=== PATIENT | female | born 1960 | race Caucasian/White ===

== ENCOUNTER 2016-08-14 16:10 | Emergency (ER) | payer OTHER ==
[~2016-08-14] VITALS: Ht 152.4 cm; Wt 72.6 kg
[~2016-08-14 16:10] MED LIST: ACETAMINOPHEN325 M1 PO; ACETAMINOPHEN650 M5 PO; AUGMENTIN 875875 MG PO; BENZTROPINE MES1 MG PO; BENZTROPINE PO; CAL PO; CARBAMAZEPINE200 M2 PO; CLONAZEPAM 0.50.5 M1 PO; CLONAZEPAM 1 MG1 M1 PO; COLACE100 MG PO; ENOXAPARIN40 MG/0.1 INJECTION; FOSAMAX 70 MG T70 MG PO; HYDROCODON-ACE1 EAC7 PO; IRON325 PO; KEPPRA 500 MG500 M1 PO; LACTULOSE10 GM/15 M PO; LASIX 20 MG TAB20 MG PO; LATUDA40 MG PO; LAXATIVE PEG 3317 GM PO; LEVOTHYROXINE0.05 MG PO; LOFIBRA200 MG PO; MILK OF MA2400 MG/10 PO; MOM PO; MULTIVITAMINS PO; RISPERDAL M-TAB2 MG PO; RISPERDAL2 MG PO; SANTYL; SANTYL OINTMENT30 G1 TOP; SENNA PO; SEROQUEL 25 MG25 MG PO; SIMVASTATIN40 MG PO; THERA-M CAPLET1 EACH PO; TRIPLE ANTIBIO1 EACH TP; TYLENOL325 MG PO; VIMPAT200 MG PO; VITAMIN B-121000 MC1 PO; VITAMIN D PO; VITAMIN D2000 UNI1 PO; VITAMINC500 PO; ZOFRAN ODT4 MG PO
== END 2016-08-14 18:54 | disposition home or self-care (01) ==
LOC: ER 16:10
DX: S00.03XA Contusion of scalp, initial encounter (principal); F20.9 Schizophrenia, unspecified; F03.90 Unspecified dementia, unspecified severity, without behavioral disturbance, psychotic disturbance, mood disturbance, and anxiety; Z88.8 Allergy status to other drugs, medicaments and biological substances; W18.09XA Striking against other object with subsequent fall, initial encounter; Y93.89 Activity, other specified; Y92.89 Other specified places as the place of occurrence of the external cause; Y99.8 Other external cause status

== ENCOUNTER 2019-09-21 09:11 | Emergency (ER) | payer OTHER ==
[~2019-09-21] VITALS: Ht 157.5 cm; Wt 68.0 kg
--- NOTE | ~2019-09-21 | EMS ---
[address] [address] EMS Patient Care Report Name: LIANET SHANNON Room #: DEP JENI Contreras#: [id number] Admission: 09/21/19 Attend Phys: Discharge: 09/21/19 Date of : 64 Report #: [id number] THIS REPORT FOR: //name// Report Transmitted: 09/25/2019 08:26 EMS Care Summary [place], [place]/[facility] Incident [id number] @ 09/21/2019 08:33 Incident Location [id number] [place] [address] Patient LIANET SHANNON Female, 59 Years 1960 Patient Address [id number] [place], [place] [id number] Patient History Seizures,Cerebral Palsy, Patient Allergies [place] allergy, Chief Complaint generalized weakness Disposition Transported No Lights/[place] Dispatch Reason Stroke/CVA Transported To [facility] Narrative nh staff on scene stated pt was last normal around 0730. nh staff stated pt was too weak to stand up from wheelchair and has been slightly altered. nh staff stated pt is normally more alert. staff contacted other provider on phone to give more info as present worker on scene did not know much personal hx with pt. pt found sitting upright in wheelchair and alert. pt alert to herself gcs 14 which correlates with baseline per nh staff. pt voiced no complaints. [address] [address] EMS Patient Care Report Name: LIANET SHANNON Room #: DEP [facility]#: [id number] Admission: 09/21/19 Attend Phys: Discharge: 09/21/19 Date of : 64 Report #: [id number] negative. surgical mask placed on pt. pt was moved from house via wheelchair. pt was transferred onto ems cot and was secured in a semi fowlers position without incident. pt was loaded into ambulance. pt was transported non emergent. transport was uneventful and pt rested on ems cot. pt care was transferred to appropriate staff and ems goes back in service. Initial Vitals @09:05P: 96,R: 20,BP: 154/82,GCS: 14,SpO2: 98,Revised Trauma: 12, @08:48P: 92,R: 20,BP: 158/82,Pain: 0/10,GCS: 14,Glucose: 190,SpO2: 98,Revised Trauma: 12, Assessments @08:40MENTAL:No Abnormalities,SKIN:No Abnormalities,HEENT:Head/Face: No Abnormalities,Eyes: No Abnormalities,Neck/Airway: No Abnormalities,LUNG SOUNDS:General: No Abnormalities,Left Upper: No Abnormalities,Right Upper: No Abnormalities,Left Lower: No Abnormalities,Right Lower: No Abnormalities,ABDOMEN:General: No Abnormalities,Left Upper: No Abnormalities,Right Upper: No Abnormalities,Left Lower: No Abnormalities,Right Lower: No Abnormalities,PELVIS//GI:No Abnormalities,EXTREMITIES:Left Arm: No Abnormalities,Right Arm: No Abnormalities,Left Leg: No Abnormalities,Right Leg: No Abnormalities,PULSE:NEURO:No Abnormalities,@08:56MENTAL:No Abnormalities,SKIN:No Abnormalities,HEENT:Head/Face: No Abnormalities,Eyes: No Abnormalities,Neck/Airway: No Abnormalities,LUNG SOUNDS:General: No Abnormalities,Left Upper: No Abnormalities,Right Upper: No Abnormalities,Left Lower: No Abnormalities,Right Lower: No Abnormalities,ABDOMEN:General: No Abnormalities,Left Upper: No Abnormalities,Right Upper: No Abnormalities,Left Lower: No Abnormalities,Right Lower: No Abnormalities,PELVIS//GI:No Abnormalities,EXTREMITIES:Left Arm: No Abnormalities,Right Arm: No Abnormalities,Left Leg: No Abnormalities,Right Leg: No Abnormalities,PULSE:NEURO:No Abnormalities, Impression Generalized Weakness Procedures @08:40ALS AssessmentResponse: UnchangedSucceeded Timeline 08:31,Call Received 08:31,Dispatch Notified 08:33,Dispatched 08:34,En Route 08:39,On Scene 08:40,At Patient 08:40,ALS Assessment,Response: UnchangedSucceeded, 08:48,BP: 158/82 M,PULSE: 92,RR: 20 R,SPO2: 98 Ox,ETCO2: ,B,PAIN: 0,GCS: [address] [address] EMS Patient Care Report Name: LIANET SHANNON Room #: DEP Diane#: [id number] Admission: 09/21/19 Attend Phys: Discharge: 09/21/19 Date of : 64 Report #: [id number] 14, 08:51,Depart Scene 09:05,BP: 154/82 M,PULSE: 96,RR: 20 R,SPO2: 98 Ox,ETCO2: ,BG: ,PAIN: ,GCS: 14, 09:06,At Destination 09:17,Call Closed Disclaimer v1.1 Copyright 2020 [employer] This EMS Care Summary contains data elements from the applicable legal record (which may be displayed differently). It is designed to provide pertinent information for the following purposes: continuity of care, clinical quality, and state data reporting. The complete legal record is available to ED staff and administrators of the receiving hospital in [employer]'s Patient Tracker. All data is provided "as is."
--- NOTE | ~2019-09-21 | EMS ---
[facility] [address] [place] [address] EMS Patient Care Report Name: LIANET SHANNON Room #: PRE M.R.#: [id number] Admission: Attend Phys: Discharge: Date of : 64 Report #: [id number] THIS REPORT FOR: //name// Report Transmitted: 09/21/2019 08:55 EMS Care Summary [place], [place]/[facility] Incident [id number] @ 09/21/2019 08:33 Incident Location [id number] [place] [address] Patient LIANET SHANNON Female, 59 Years 1960 Patient Address [address] [place] [address] Patient History Seizures,Cerebral Palsy, Patient Allergies [place] allergy, Chief Complaint generalized weakness Disposition Transported No Lights/[place] Dispatch Reason Stroke/CVA Transported To [facility] Narrative nh staff on scene stated pt was last normal around 07. nh staff stated pt was too weak to stand up from wheelchair and has been slightly altered. nh staff stated pt is normally more alert. staff contacted other provider on phone to give more info as present worker on scene did not know much personal hx with pt. pt found sitting upright in wheelchair and alert. pt alert to herself gcs 14 which correlates with baseline per nh staff. pt voiced no complaints. [facility] [address] [place] [address] EMS Patient Care Report Name: LIANET SHANNON Room #: PRE [facility].R.#: [id number] Admission: Attend Phys: Discharge: Date of : 64 Report #: [id number] negative. surgical mask placed on pt. pt was moved from house via wheelchair. pt was transferred onto ems cot and was secured in a semi fowlers position without incident. pt was loaded into ambulance. pt was transported non emergent. transport was uneventful and pt rested on ems cot. pt care was transferred to appropriate staff and ems goes back in service. Initial Vitals @09:05P: 96,R: 20,BP: 154/82,GCS: 14,SpO2: 98,Revised Trauma: 12, @08:48P: 92,R: 20,BP: 158/82,Pain: 0/10,GCS: 14,Glucose: 190,SpO2: 98,Revised Trauma: 12, Assessments @08:40MENTAL:No Abnormalities,SKIN:No Abnormalities,HEENT:Head/Face: No Abnormalities,Eyes: No Abnormalities,Neck/Airway: No Abnormalities,LUNG SOUNDS:General: No Abnormalities,Left Upper: No Abnormalities,Right Upper: No Abnormalities,Left Lower: No Abnormalities,Right Lower: No Abnormalities,ABDOMEN:General: No Abnormalities,Left Upper: No Abnormalities,Right Upper: No Abnormalities,Left Lower: No Abnormalities,Right Lower: No Abnormalities,PELVIS//GI:No Abnormalities,EXTREMITIES:Left Arm: No Abnormalities,Right Arm: No Abnormalities,Left Leg: No Abnormalities,Right Leg: No Abnormalities,PULSE:NEURO:No Abnormalities,@08:56MENTAL:No Abnormalities,SKIN:No Abnormalities,HEENT:Head/Face: No Abnormalities,Eyes: No Abnormalities,Neck/Airway: No Abnormalities,LUNG SOUNDS:General: No Abnormalities,Left Upper: No Abnormalities,Right Upper: No Abnormalities,Left Lower: No Abnormalities,Right Lower: No Abnormalities,ABDOMEN:General: No Abnormalities,Left Upper: No Abnormalities,Right Upper: No Abnormalities,Left Lower: No Abnormalities,Right Lower: No Abnormalities,PELVIS//GI:No Abnormalities,EXTREMITIES:Left Arm: No Abnormalities,Right Arm: No Abnormalities,Left Leg: No Abnormalities,Right Leg: No Abnormalities,PULSE:NEURO:No Abnormalities, Impression Generalized Weakness Procedures @08:40ALS AssessmentResponse: UnchangedSucceeded Timeline 08:31,Call Received 08:31,Dispatch Notified 08:33,Dispatched 08:34,En Route 08:39,On Scene 08:40,At Patient 08:40,ALS Assessment,Response: UnchangedSucceeded, 08:48,BP: 158/82 M,PULSE: 92,RR: 20 R,SPO2: 98 Ox,ETCO2: ,B,PAIN: 0,GCS: [address] [address] EMS Patient Care Report Name: LIANET SHANNON Room #: PRE ER M.R.#: [id number] Admission: Attend Phys: Discharge: Date of : 64 Report #: [id number] 14, 08:51,Depart Scene 09:05,BP: 154/82 M,PULSE: 96,RR: 20 R,SPO2: 98 Ox,ETCO2: ,BG: ,PAIN: ,GCS: 14, 09:06,At Destination 09:17,Call Closed Disclaimer v1.1 Copyright 2020 [employer] This EMS Care Summary contains data elements from the applicable legal record (which may be displayed differently). It is designed to provide pertinent information for the following purposes: continuity of care, clinical quality, and state data reporting. The complete legal record is available to ED staff and administrators of the receiving hospital in [employer]'s Patient Tracker. All data is provided "as is."
[2019-09-21 09:47] LABS: HEMATOCRIT 40.7 % (37.0-47.0); HEMOGLOBIN 13.7 gm/dL (12.0-15.0); MCH 30.1 pg (26.0-34.0); MCHC 33.7 g/dL (28.0-37.0); MCV 89.2 fL (80.0-100.0); RBC 4.56 mil/uL (4.20-5.00); RDW 13.6 % (10.5-14.5); WBC 4.8 thou/uL (4.0-11.0)
[2019-09-21 09:53] LABS: URINE BILIRUBIN NEGATIVE (Negative); URINE BLOOD NEGATIVE (Negative); URINE COLOR YELLOW; URINE GLUCOSE-RANDOM* NEGATIVE (Negative); URINE KETONES NEGATIVE (Negative); URINE NITRITE-REFLEX NEGATIVE (Negative); URINE PROTEIN (DIPSTICK) NEGATIVE (Negative); URINE SPECIFIC GRAVITY 1.015 (1.005-1.035); URINE UROBILINOGEN 0.2 E.U./dl (0.2-1.0)
[2019-09-21 09:55] LABS: URINE CLARITY CLOUDY; URINE LEUKOCYTES-REFLEX 3+ (Negative)
[2019-09-21] MEDS ORDERED: CARBAMAZEPINE100 M2 PO (09:55)
[2019-09-21 09:57] LABS: ANION GAP 8 mmol/L (7-16); BUN 13 mg/dL (7-18); CALCIUM 9.3 mg/dL (8.5-10.1); CHLORIDE 101 mmol/L (98-107); CO2 29 mmol/L (21-32); CREATININE 0.9 mg/dL (0.6-1.0); GLUCOSE 107 mg/dL (74-106); POTASSIUM 3.9 mmol/L (3.5-5.1); SODIUM 138 mmol/L (136-145)
[2019-09-21] MEDS ORDERED: KEPPRA XR500 MG PO (09:58)
[2019-09-21] MEDS ORDERED: LOXAPINE50 MG PO (09:59)
[2019-09-21] MEDS ORDERED: PRAZOSIN 1 MG CA1 M1 PO (09:59)
[2019-09-21 10:02] LABS: ALBUMIN 3.7 g/dL (3.4-5.0); DIRECT BILIRUBIN < 0.1 mg/dL (<0.1-0.2); LIPASE 102 U/L (73-393); SGOT 24 U/L (15-37); SGPT 31 U/L (30-65); TOTAL BILIRUBIN 0.2 mg/dL (<0.1-1.0); TOTAL PROTEIN 7.1 g/dL (6.4-8.2)
[2019-09-21 10:04] LABS: BACTERIA-REFLEX >30 Many /HPF (None Seen); CASTS None Seen /LPF (None Seen); CRYSTALS None Seen /LPF (None Seen); SQUAMOUS None Seen /LPF (0-3); URINE RBC None Seen /HPF (0-2); URINE WBC-REFLEX 6-15 Few /HPF (0-5)
[2019-09-21] MEDS ORDERED: KEFLEX500 M1 PO (10:42)
[2019-09-21 10:45] VITALS: BP 136/71
== END 2019-09-21 10:45 | disposition home or self-care (01) ==
LOC: ER 09:11
PROVIDERS: Emergency Medicine
DX: N39.0 Urinary tract infection, site not specified (principal); K59.00 Constipation, unspecified; R41.82 Altered mental status, unspecified; R53.1 Weakness; Z79.899 Other long term (current) drug therapy; Z88.8 Allergy status to other drugs, medicaments and biological substances

== ENCOUNTER 2021-07-10 10:07 | Inpatient (IN) | payer OTHER ==
[~2021-07-10] VITALS: Ht 160 cm; Wt 78.8 kg
--- NOTE | ~2021-07-10 | EMS ---
[address] [address] EMS Patient Care Report Name: LIANET SHANNON Room #: REG JENI Contreras#: [id number] Admission: 07/10/21 Attend Phys: Discharge: Date of : 64 Report #: [id number] THIS REPORT FOR: //name// Report Transmitted: 07/10/2021 10:17 EMS Care Summary [place], [place]/[facility] Incident [id number] @ 07/10/2021 09:17 Incident Location [address] [place] [address] Patient LIANET SHANNON Female, 61 Years 1960 Patient Address [address] [place] [address] Patient History Seizures,Hyperlipidemia,Anxiety Disorder (Panic Attacks),Bipolar II Disorder,Paranoid Schizophrenia, Patient Allergies No known allergies, Patient Medications Carbamazepine, Claritin, Keppra, Alendronate, Lasix, Mobic, Synthroid, Flomax, Chief Complaint Possible Stroke Disposition Transported No Lights/[place] Dispatch Reason Stroke/CVA Transported To [facility] Narrative [facility] stated that Pt has been more sleepy along with slurred speech, left side weakness and unable to get up on her own and facial drooping too which started around 16 00 hours yesterday. Pt stated she is unable to [address] [address] EMS Patient Care Report Name: LIANET SHANNON Room #: REG [facility].#: [id number] Admission: 07/10/21 Attend Phys: Discharge: Date of : 64 Report #: [id number] feed herself without spilling everything on herself and can not get up without the fear of falling and is having issues of speaking too. Pt stated she never had this issue before and stated she is scared . Pt is a GCS 14 which staff stated is normal for Pt and Pt is with no other complaints. Pt found sitting in wheelchair at [facility], Pt is with left side facial drooping, left side arm and leg weakness and left arm drift with slurred speech when she speaks. . Pt is a new onset of CVA that was last know well @ 1600 hours yesterday.. Staff said Pt is pretty much takes care of herself and has no history of strokes in the past. Pt is a GCS 14 which staff stated is normal for Pt and Pt is with no other complaints noted to EMS. Pt transported to [facility] ER due to the closest hospital rule in affect due to weather. Pt received by RN in ER. Initial Vitals @09:38P: 90,R: 18,BP: 122/77,Pain: 0/10,GCS: 14,Glucose: 97,SpO2: 96,Revised Trauma: 12, @09:58P: 82,R: 18,BP: 111/59,Pain: 0/10,GCS: 15,SpO2: 100,Revised Trauma: 12, @09:47P: 84,R: 18,BP: 128/57,Pain: 0/10,GCS: 15,SpO2: 99,Revised Trauma: 12, Assessments @09:31MENTAL:Place Oriented,Person Oriented,Event Oriented,Confused,SKIN:HEENT:Head/Face: No Abnormalities,Neck/Airway: No Abnormalities,LUNG SOUNDS:General: No Abnormalities,ABDOMEN:General: No Abnormalities,PELVIS//GI:No Abnormalities,EXTREMITIES:Left Leg: Other,Left Arm: Weakness,Left Arm: Other,Left Leg: Weakness,Capillary Refill: Left Upper: < 2 Sec,Right Arm: No Abnormalities,Right Leg: No Abnormalities,PULSE:Radial: 2+ Normal,NEURO:Slurred Speech,Weakness Left-Sided,Abnormal Gait,Facial Droop,@10:00MENTAL:Place Oriented,Event Oriented,Confused,Person Oriented,SKIN:HEENT:Head/Face: Facial Droop,Neck/Airway: No Abnormalities,LUNG SOUNDS:General: No Abnormalities,ABDOMEN:General: No Abnormalities,PELVIS//GI:No Abnormalities,EXTREMITIES:Left Arm: Weakness,Right Leg: Weakness,Right Leg: Other,Capillary Refill: Left Upper: < 2 Sec,Left Leg: Weakness,Left Arm: Other,Left Leg: Other,Right Arm: No Abnormalities,PULSE:Radial: 2+ Normal,NEURO:Abnormal Gait,Facial Droop,Weakness Left-Sided,Slurred Speech, Impression Stroke Procedures @09:31 ALS Assessment Response: UnchangedSucceeded @09:34 Oxygen FlowRate: 4 Device: Nasal Cannula (NC) Response: UnchangedSucceeded @09:40 IV Therapy - Saline Lock 0cc (20 ga) Site: Forearm-Right Response: UnchangedSucceeded [address] [address] EMS Patient Care Report Name: LIANET SHANNON Room #: REG JENI Contreras#: [id number] Admission: 07/10/21 Attend Phys: Discharge: Date of : 64 Report #: [id number] @09:45 Stroke Alert Response: Unchanged @09:36 3-Lead ECG Response: UnchangedSucceeded Timeline 09:14,Call Received 09:14,Dispatch Notified 09:17,Dispatched 09:18,En Route 09:30,On Scene 09:31,At Patient 09:31,ALS Assessment,Response: UnchangedSucceeded, 09:34,Oxygen FlowRate: 4 Device: Nasal Cannula (NC) Response: UnchangedSucceeded, 09:36,3-Lead ECG,Response: UnchangedSucceeded, 09:38,BP: 122/77 M,PULSE: 90,RR: 18 R,SPO2: 96 Ox,ETCO2: ,B,PAIN: 0,GCS: 14, 09:40,IV Therapy - Saline Lock 0cc 20 ga Site: Forearm-Right,Response: UnchangedSucceeded, 09:45,Stroke Alert,Response: Unchanged 09:47,BP: 128/57 M,PULSE: 84,RR: 18 R,SPO2: 99 Ox,ETCO2: ,BG: ,PAIN: 0,GCS: 15, 09:49,Depart Scene 09:58,BP: 111/59 M,PULSE: 82,RR: 18 R,SPO2: 100 Ox,ETCO2: ,BG: ,PAIN: 0,GCS: 15, 10:02,At Destination 10:23,Call Closed Disclaimer v1.1 Copyright 2021 [employer] This EMS Care Summary contains data elements from the applicable legal record (which may be displayed differently). It is designed to provide pertinent information for the following purposes: continuity of care, clinical quality, and state data reporting. The complete legal record is available to ED staff and administrators of the receiving hospital in [employer]'s Patient Tracker. All data is provided "as is."
[~2021-07-10 10:07] MED LIST changes: +CARBAMAZEPINE100 M2 PO; +KEFLEX500 M1 PO; +KEPPRA XR500 MG PO; +LOXAPINE50 MG PO; +PRAZOSIN 1 MG CA1 M1 PO
[2021-07-10 10:08] VITALS: BP 132/61
[2021-07-10 10:50] LABS: HEMATOCRIT 37.6 % (37.0-47.0); HEMOGLOBIN 12.3 gm/dL (12.0-15.0); MCH 29.2 pg (26.0-34.0); MCHC 32.7 g/dL (28.0-37.0); MCV 89.4 fL (80.0-100.0); RBC 4.2 mil/uL (4.20-5.00); RDW 14.3 % (10.5-14.5); WBC 6.4 thou/uL (4.0-11.0)
[2021-07-10 10:57] LABS: CALCIUM 8.6 mg/dL (8.5-10.1); CREATININE 0.8 mg/dL (0.6-1.0)
[2021-07-10 11:11] LABS: ALBUMIN 3.3 g/dL (3.4-5.0); MAGNESIUM 2.1 mg/dL (1.8-2.4); PHOSPHORUS 3.1 mg/dL (2.6-4.7); TOTAL BILIRUBIN 0.2 mg/dL (0.2-1.0); TOTAL PROTEIN 6.4 g/dL (6.4-8.2)
[2021-07-10 11:45] LABS: URINE BILIRUBIN NEGATIVE (Negative); URINE BLOOD NEGATIVE (Negative); URINE CLARITY CLEAR; URINE COLOR YELLOW; URINE GLUCOSE-RANDOM* NEGATIVE (Negative); URINE KETONES NEGATIVE (Negative); URINE PROTEIN (DIPSTICK) NEGATIVE (Negative); URINE SPECIFIC GRAVITY 1.015 (1.005-1.035); URINE UROBILINOGEN 0.2 E.U./dl (0.2-1.0)
[2021-07-10 11:47] LABS: URINE LEUKOCYTES-REFLEX 1+ (Negative); URINE NITRITE-REFLEX POSITIVE (Negative)
[2021-07-10 12:11] LABS: BACTERIA-REFLEX >30 Many /HPF (None Seen); CASTS None Seen /LPF (None Seen); CRYSTALS None Seen /LPF (None Seen); SQUAMOUS 0-3 Few /LPF (0-3); URINE RBC 1-2 Rare /HPF (NONE SEEN); URINE WBC-REFLEX >25 Many /HPF (0-5)
[2021-07-10 12:17] LABS: AMP/METHAMP Negative (Negative); BARBITURATES Negative (Negative); BENZODIAZEPINES Negative (Negative); COCAINE Negative (Negative); METHADONE Negative (Negative); OPIATES Negative (Negative); PCP Negative (Negative)
[2021-07-10] MEDS ORDERED: VIMPAT100 MG PO (15:04)
[2021-07-10] MEDS ORDERED: VIMPAT200 MG PO (15:05)
[2021-07-10] MEDS ORDERED: LIPITOR40 MG PO (15:06)
[2021-07-10] MEDS ORDERED: KEPPRA1000 MG PO (15:07)
[2021-07-10] MEDS ORDERED: CARBAMAZEPINE100 M2 PO (15:10)
[2021-07-10] MEDS ORDERED: MELOXICAM15 MG PO (15:11)
[2021-07-10] MEDS ORDERED: TAMSULOSIN HCL0.4 MG PO (15:11)
[2021-07-10 19:24] VITALS: BP 116/63
[2021-07-10 22:38] VITALS: BP 118/55
[2021-07-11 07:16] VITALS: BP 129/44
[2021-07-11 07:24] VITALS: BP 134/51
--- NOTE | 2021-07-11 07:32 | EKG ---
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 : 1960 Requested By: Jasson Sargent Order Number: [id number] MD: Jatin Rodriguez Measurements Intervals [place] Rate: 85 P: 44 CO: 163 QRS: 18 QRSD: 95 T: 61 QT: 385 QTc: 458 Interpretive Statements Sinus rhythm Borderline T abnormalities, anterior leads Compared to ECG 09/26/2013 16:58:32 T-wave abnormality now present Sinus tachycardia no longer present Short CO interval no longer present Electronically Signed On 07-11-2021 7:31:56 DRUG SAFETY SPECIALIST by Jatin Rodriguez [email or web address] <ELECTRONICALLY SIGNED> By: Jatin Rodriguez MD, [facility] 07/11/21 0731 11 11 Jatin Rodriguez MD, [facility] /EPI
[2021-07-11 07:49] VITALS: BP 115/49
--- NOTE | 2021-07-11 08:21 | NUR ---
Assuming care of patient now. Patient is alert to self and able to answer yes/no questions. Pleasant mood. Caregiver at bedside and assisted with questions. Siezure precautions. Patient was seen by neurology. Using bedpan; appears to be able to voice when needing it. Admission hx & education complete. Fall precautions in place. Endorsed to charge nurse
[2021-07-11 08:46] LABS: HEMATOCRIT 36.5 % (37.0-47.0); HEMOGLOBIN 11.9 gm/dL (12.0-15.0); MCH 29.2 pg (26.0-34.0); MCHC 32.6 g/dL (28.0-37.0); MCV 89.4 fL (80.0-100.0); RBC 4.08 mil/uL (4.20-5.00); RDW 14.2 % (10.5-14.5); WBC 4.8 thou/uL (4.0-11.0)
[2021-07-11 08:51] LABS: CALCIUM 8.4 mg/dL (8.5-10.1); CREATININE 0.8 mg/dL (0.6-1.0); POTASSIUM 3.9 mmol/L (3.5-5.1)
--- NOTE | 2021-07-11 13:34 | NUR ---
I have reviewed the documentation by SOBIA RYAN from 07/11/21 to 07/11/21 and I concur with it. YG TOLEDO, PT, DPT
--- NOTE | 2021-07-11 16:17 | NUR ---
Patient admits from [facility]. Spoke with Le [phone] from [facility]. Spoke with Josefina Rn for [facility] [phone]. She reports to return to [facility] they need 24 hour notice to due staffing at [facility]. Patient admits with seizures. She has had seizures in past but staff report more intence. Patient ambulated with gait belt one person assist. She was able to feed herself and now cannot feed herself per staff. Le reports public configuration management administrator office notified of admission. If patient would discharge over weekend need 24 hour notice Call Tatyana at number above and fax orders to same number.
[2021-07-11 16:51] VITALS: BP 111/40
[2021-07-11 18:15] VITALS: BP 115/65
--- NOTE | 2021-07-11 18:23 | NUR ---
Patient had a witnessed tonic-clonic siezure lasting approximately 5 seconds. vitals were taken immediately after; stable. O2 sat stable, airway clear. Patient does not seem post-ictal and states she is "fine". continuing close monitoring. Time:1824
--- NOTE | 2021-07-12 04:58 | NUR ---
Pt. rested quietly at intervals during the night when checked on during frequent rounds. No noted seizures this shift and seizure precautions in place. No c/o pain offered. Bed alarm is on.
[2021-07-12 07:41] VITALS: BP 124/57
[2021-07-12 10:08] VITALS: BP 124/57
--- NOTE | 2021-07-12 10:20 | NUR ---
Resummed care @0700: Patient located in bed, resting comfortably. A&O*1. No S/O acute distress noted. Patient present calm, cooperative, and pleasent. Speech is noted delayed, developmental delay noted. Denies SOB, Pain, CP. No S/O seziure active present today, patient denied presence of any new seziure activity. VSS on [employer]. Patient denies any complaints at this time. Call light is within reach, high-fall precautions and seziure precautions are in place. Frequent monitioring due to patients hx of seziures. Patient did feed herself this morning, and took her medications 1:1 without complication. IV in the right wrist - S.L. Patient is incontinent at times, but will use bedpan if offered to her. Telly monitior in place - SR.
[2021-07-12 11:34] VITALS: BP 111/59
[2021-07-12] MEDS ORDERED: KEPPRA1000 MG PO (13:09)
[2021-07-12] MEDS ORDERED: CARBAMAZEPINE100 M3 PO (13:09)
[2021-07-12] MEDS ORDERED: VIMPAT100 MG PO (13:09)
[2021-07-12 15:25] VITALS: BP 129/58
[2021-07-12 19:17] VITALS: BP 105/65
--- NOTE | 2021-07-13 04:02 | NUR ---
Pt. rested quietly during the night when checked on during frequent rounds. She offers no complaints. No noted seizure activity and seizure precautions in place. Bed alarm is on.
[2021-07-13 07:31] VITALS: BP 113/54
--- NOTE | 2021-07-13 11:47 | NUR ---
SPOKE WITH [facility] AND PT CAN NOT RETURN TO FACILITY TILL TOMORROW. WILL PASS ONTO ATTENDING.
--- NOTE | 2021-07-13 12:52 | NUR ---
SPOKE WITH [facility] AND THEY WILL NOT BE ABLE TO ACCEPT PT BACK UNTIL WEDNESDAY THEY NEED 24HRS NOTICE FOR STAFFING. INFORM DR. WHEELER. WILL CONTINUE TO ASSESS.
[2021-07-13 19:41] VITALS: BP 118/53
--- NOTE | 2021-07-14 05:13 | NUR ---
PROGRESS PT ALERT AND COOPERATIVE. ABLE TO EXPRESS NEEDS LIKE WATER OR REQUEST TO TOLIET. VSS. ACTIVITY QUIETLY PLAYING WITH TOYS AND COLORING, SLEEP ON AND OFF THROUGHOUT SHIFT. VOIDING PER BEDPAN AND HAD A SMALL FORMED BM. DENIES PAIN. SKIN C/D/I. ABLE TO SWALLOW PILLS WHOLE AND TOLERATING REG DIET AND THIN LIQUIDS. PLAN IS TO DC BACK TO FACILITY TODAY.
--- NOTE | 2021-07-14 12:44 | NUR ---
CARE TEAM INDICATED THAT PT IS MEDICALLY STABLE TO DISCHARGE BACK TO [facility] THIS DAY. CM CALLED AND SPOKE WITH MIGUEL RN AT THE FACILITY AND SHE IS AWARE AND AGREEABLE WITH PT RETURNING THIS DAY. CAMILA ARRANGED FOR [phone]. CHART COPY MADE. ORDERS FAXED. CM NOTIFIED MARGA BRIGHT AT [facility] OFFICE AND FAXED DC PAPERWORK TO THEM WELL . NO OTHER CM INTERVENTION INDICATED. CASE CLOSED.
--- NOTE | 2021-07-15 10:11 | HC ---
[facility] [place] [address] CONSULTATION Name: LAINET SHANNON Room #: 462-P [facility] IN M.R.#: [id number] Admission: 07/10/21 Attend Phys: Bernardo Chow DO Discharge: 07/14/21 Date of : 64 Report #: [id number] THIS REPORT FOR: cc: Sera Malik MD, Veronica A. MD Khosla,Ty Mendoza MD ~ DATE OF SERVICE: 07/10/2021 HISTORY OF PRESENT ILLNESS: This is a 61-year-old female patient, who was evaluated by me for seizure. There is a caregiver. She has provided this patient's care for the last 3 years or so. She said that is the long she has been with the [employer]. She does not know how long she has been in this [facility]. She has cerebral palsy as I understand and she talks and phrases like she can say yes or no. She gets frequent seizures. She usually sees Dr. Canales, who is an epileptologist at [facility]. She does get frequent seizure. Seizures are usually brief. It lasts for about 30 seconds. She will jerk, her eyes would rolled up and she will be drained out after that. She is on multiple medications for seizures by Dr. Canales. Yesterday, she had some seizure. With that, she had slurred speech. They could not make her walk. I do not know whether that was because of unilateral weakness or bilateral weakness of the legs. Since then, she had a few seizures. She has missed her anticonvulsant this morning. All the seizure she had since yesterday are typical short 30-second seizures. REVIEW OF SYSTEMS: Positive for intellectual disability. There is some question of schizophrenia. She talks only in phrases. She is on multiple medications. List of medication was provided by the caregiver just now to the nurses and they are putting it in. Form that it looks like seizure medication are lacosamide 150 mg p.o. b.i.d. She is on Tegretol if I understand correctly. She is on some dosages, which is not clear and the nurses are trying to clarify that. Records says that she is on Keppra 1000 mg b.i.d. I suspect that is a typo and that probably should be 1000 mg p.o. b.i.d. Nurses are trying to clarify that. This was a relevant 14-point review of system I can get in this patient. PAST MEDICAL HISTORY: Positive for seizures. ALLERGIES: SHE IS ALLERGIC TO DILANTIN AND DEPAKOTE. FAMILY HISTORY: Unavailable. SOCIAL HISTORY: She does not smoke or drink alcohol and she lives in a [facility]. PHYSICAL EXAMINATION: Pretty limited because of her baseline intellectual [address] [address] CONSULTATION Name: LIANET SHANNON Room #: 462-P [facility] IN M.R.#: [id number] Admission: 07/10/21 Attend Phys: Bernardo Chow DO Discharge: 07/14/21 Date of : 64 Report #: [id number] disability, but she followed commands. She was able to move both sides. Sometime it looks she is weak on the right arm compared to the left, but she can move it against gravity. She could not cooperate with the sensory examination. I do not see any meningeal sign. I could not look at the fundus. She does not have intellectual capability to cooperate with the rest of the neurological examination. Cardiac examination appear mostly noncontributory. She is not in respiratory difficulty. Her blood pressure is 100/37, pulse is 86, respirations 15. LABORATORY DATA: White count is normal, but she does have a UTI with white count of more than 25 in the urine. IMPRESSION AND PLAN: Longstanding seizure disorder with the patient being on multiple anticonvulsants. I talked to Dr. Chow, the hospitalist, who admitted the patient and I talked to the nurse looking after this patient in the ER and I discussed with them that we need to start her anticonvulsant as soon as possible on the dosages the patient was on in the [facility]. I talked to the nurse that since she missed this morning dose, she should get a dose of lacosamide, Keppra and Tegretol as soon as possible and after that she will get the maintenance dose. I suspect the most likely trigger for the seizures were urinary tract infection. 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 However, other things has to be excluded in this patient, especially stroke because of some pathology like dissection of the large vessel. I first thought about doing a CT angiogram in this patient, but the patient is going for MRI. I just asked him to go ahead and do an MRI of the brain and MRA of the [place] if she cooperates. I will get an ultrasound of the carotid. I do not know whether she will be able to cooperate and lay still and follow the instruction to do all the testing, especially the MRI. We may still have to do the CT angiogram, but since that event was yesterday and she is stable, I will just get an MRI and MRA done, and if that does not give me an answer, then I will try to get a CT angiogram done. Further management will depend upon the outcome of those testing. We will look at this testing and follow up with you. More than 50 minutes of time was spent taking care of this patient today and majority was spent counseling and coordinating including talking to multiple healthcare professionals and reviewing her data. <ELECTRONICALLY SIGNED> By: Ty Ramirez MD 07/15/21 1011 [id number] Ty Ramirez MD /nt
--- NOTE | 2021-07-15 10:11 | EEG ---
[facility] [place] [address] ELECTROENCEPHALOGRAM Name: LIANET SHANNON Room #: 462-P [facility] IN M.R.#: [id number] Admission: 07/10/21 Attend Phys: Bernardo Chow DO Discharge: 07/14/21 Date of : 64 Report #: [id number] THIS REPORT FOR: //name// DATE OF SERVICE: 07/11/2021 This patient is being evaluated for seizure. EEG was done by placing the electrode by standard 10-20 system of electrode placement. Both referential and sequential montages were used for recording. Background activity is disorganized and poorly formed. It appeared to be showing a background activity of about 7 Hz and 30 microvolt. Epileptiform activity appeared to be present on both sides, but is intermittent. Photic stimulation is unremarkable. IMPRESSION: This patient's EEG is slow and poorly formed, that is a nonspecific abnormality, which can occur with encephalopathy, effect of psychotropic medication, dementia, etc. The patient does have epileptiform activity on both sides, but that is episodic. Clinical correlation is recommended. Thank you very much for this referral. <ELECTRONICALLY SIGNED> By: Ty Ramirez MD 07/15/21 1011 [id number] Ty Ramirez MD /nt
== END 2021-07-14 13:51 | disposition home or self-care (01) | DRG 101 ==
LOC: ER 10:07 → EROBS 12:55 → 4W 12:55
PROVIDERS: Emergency Medicine; ADMIT Pediatrics; ATTEND Pediatrics
PROC: 4A00X4Z Measurement of Central Nervous Electrical Activity, External Approach (ICD-10-PCS; principal; 2021-07-10)
DX: G40.909 Epilepsy, unspecified, not intractable, without status epilepticus (principal); N39.0 Urinary tract infection, site not specified; G45.9 Transient cerebral ischemic attack, unspecified; G83.84 Todd's paralysis (postepileptic); F79 Unspecified intellectual disabilities; Z20.822 Contact with and (suspected) exposure to COVID-19; Z88.8 Allergy status to other drugs, medicaments and biological substances
CPT/HCPCS: 10045